=== PATIENT | female | born 1970 | race African-American/Black ===

== ENCOUNTER 2021-08-22 21:23 | Observation (INO) ==
[2021-08-22 23:30] LABS: Basophils % 0.2 % (0.0-0.8); Eosinophils % 0.1 % (0.00-10.9); Hematocrit 42.3 VOL% (35.7-47.0); Hemoglobin 13.9 GM/DL (12.0-16.0); Immature Granulocytes % 0.4 %; Immature Granulocytes Absolute 0.04 #; Lymphocytes # 1.7 10*3/uL (1.4-4.0); Lymphocytes % 14.9 % (21.3-54.2); Mean Corpuscular HGB Conc 32.9 GM/DL (32-36); Mean Corpuscular Volume 89.1 FL (87-102); Mean Platelet Volume 10.1 FL (9.6-12.0); Monocytes # 0.8 10*3/uL (0.11-0.8); Neutrophils % 77.4 % (38.7-73.9); Platelet Count 239 T/CUMM (130-400); Red Blood Count 4.75 MC/CUMM (3.8-5.5); White Blood Count 11.4 T/CUMM (4-12)
[2021-08-23] MEDS ORDERED: ACETAMINOPHEN 325 MG TABLET PO PRN (00:07)
[2021-08-23] MEDS ORDERED: ONDANSETRON 4 MG/2 ML VIAL IV PRN (00:07)
[2021-08-23] MEDS ORDERED: MORPHINE 2 MG/1 ML SYRINGE IV PRN (00:26)
[2021-08-23] MEDS ORDERED: hydrALAZINE 20 MG/1 ML VIAL ONE (00:27)
[2021-08-23] MEDS ORDERED: hydrALAZINE 20 MG/1 ML VIAL IV STA (00:30)
[2021-08-23] MEDS ORDERED: LABETALOL 20 MG/4 ML SYRINGE IV STA (01:09)
[2021-08-23] MEDS ORDERED: SODIUM CHLORIDE 0.9% 1,000 ML IV STA (01:10)
[2021-08-23] MEDS ORDERED: SODIUM CHLORIDE 0.9% 500 ML IV STA (01:26)
[2021-08-23 01:38] LABS: Albumin 3.6 G/DL (3.4-5.0); Calcium 9.3 MG/DL (8.5-10.1); Osmolality,Calculated 271.8 MOS/KG (273-304); Potassium 3.7 MMOL/L (3.5-5.1); Total Protein 7.3 G/DL (6.4-8.2)
[2021-08-23 05:36] LABS: Basophils % 0.3 % (0.0-0.8); Hematocrit 40.8 VOL% (35.7-47.0); Hemoglobin 13.4 GM/DL (12.0-16.0); Immature Granulocytes % 0.4 %; Immature Granulocytes Absolute 0.04 #; Lymphocytes # 1.4 10*3/uL (1.4-4.0); Lymphocytes % 12.2 % (21.3-54.2); Mean Corpuscular HGB Conc 32.8 GM/DL (32-36); Mean Corpuscular Volume 88.7 FL (87-102); Mean Platelet Volume 10.2 FL (9.6-12.0); Monocytes # 0.8 10*3/uL (0.11-0.8); Neutrophils % 80.1 % (38.7-73.9); Platelet Count 244 T/CUMM (130-400); Red Cell Distribution Width 12.3 % (9.3-17.3); White Blood Count 11.3 T/CUMM (4-12)
[2021-08-23 05:59] LABS: Calcium 8.7 MG/DL (8.5-10.1); Osmolality,Calculated 274.5 MOS/KG (273-304); Potassium 3.5 MMOL/L (3.5-5.1)
[2021-08-23] MEDS ORDERED: IBUPROFEN 400 MG TABLET PO PRN (07:14)
[2021-08-23] MEDS: ACETAMINOPHEN 325 MG TABLET PO PRN ×2 (07:38→15:17)
[2021-08-23] MEDS ORDERED: PANTOPRAZOLE 40 MG VIAL IV SCH (09:00)
[2021-08-23] MEDS ORDERED: PANTOPRAZOLE 40 MG TABLET PO SCH (09:00)
[2021-08-23] MEDS ORDERED: LOSARTAN 25 MG TABLET PO SCH (16:45)
[2021-08-24 07:39] VITALS: BP 152/96
== END 2021-08-24 12:15 | disposition home or self-care (01) ==
LOC: N.ED 21:23 → N.EDINP 21:23 → N.ICU 08-23 01:57
PROVIDERS: ADMIT Surgery; ATTEND Surgery